=== PATIENT | male | born 1995 | race African-American/Black ===

== ENCOUNTER 2017-02-06 11:02 | Emergency (ER) | payer SELFPAY ==
[2017-02-06 11:43] LABS: #Basophils 0.1 thou/uL (0.0-0.2); #Eosinphils 0.1 thou/uL (0.0-0.7); #Lymphocytes 2.3 thou/uL (1.20-3.40); #Neutrophils 8.8 thou/uL (1.40-6.50); %Basophils 0.6 % (0.0-1.0); %Lymphocytes 18.4 % (21.0-51.0); %Monocytes 8.5 % (0.0-10.0); Hematocrit 46.1 % (42.0-52.0); Mean Platelet Volume 8.6 fL (7.4-10.4); Red Blood Cell (RBC) Count 5.08 mill/uL (4.70-6.10); White Blood Cell (WBC) Count 12.2 thou/uL (4.8-10.8)
[2017-02-06 12:07] LABS: ALT (SGPT) 27 U/L (8-55); AST (SGOT) 20 U/L (5-34); Alkaline Phosphatase 64 U/L (40-150); Anion Gap 11 mmol/L (10-20); BUN (Urea Nitrogen) 17 mg/dL (8.9-20.6); Bilirubin, Total 0.5 mg/dL (0.2-1.2); Calc. Creatinine Clearance 0 mL/min (70-130); Calcium 9.7 mg/dL (7.8-10.44); Carbon Dioxide 28 mmol/L (22-29); Chloride 108 mmol/L (98-107); Estimated GFR-MDRD Greater than 90; Globulin 3.2 g/dL (2.4-3.5); Lipase 12 U/L (8-78); Protein, Total 7.1 g/dL (6.0-8.3)
[2017-02-06] MEDS ORDERED: Ondansetron ODT 4 MG TAB ONE (13:12)
[2017-02-06] MEDS ORDERED: Dicyclomine HCl 20 mg/2 ml Ampule ONE (13:12)
[2017-02-06 13:19] LABS: Bilirubin Negative (Negative); Blood, Urine Negative (Negative); Glucose, Urine (Dipstick) Negative (Negative); Ketone, Urine Negative (Negative); Nitrite Negative (Negative); Protein, Urine (Dipstick) Negative (Neg-Trace)
== END 2017-02-06 14:51 | disposition home or self-care (01) ==
LOC: ERS 11:02
DX: R19.7 Diarrhea, unspecified (principal); J45.909 Unspecified asthma, uncomplicated; F17.210 Nicotine dependence, cigarettes, uncomplicated
CPT/HCPCS: 36415; 80053; 81003; 83690; 85025; 96372; Q0162

== ENCOUNTER 2017-08-05 22:11 | Emergency (ER) | payer SELFPAY ==
[2017-08-05] MEDS ORDERED: Lidocaine 1% PF 5 ML VIAL ONE (22:56)
[2017-08-05] MEDS ORDERED: cefTRIAXone\\ROCEPHIN 250 MG VIAL ONE (22:56)
[2017-08-05 22:59] LABS: Bilirubin Negative (Negative); Blood, Urine Negative (Negative); Clarity CLEAR (Clear); Glucose, Urine (Dipstick) Negative (Negative); Leukocyte Negative (Negative); Nitrite Negative (Negative); Protein, Urine (Dipstick) Negative (Neg-Trace); Specific Gravity, Urine 1.023 (1.002-1.036); Urobilinogen 0.2 mg/dL (0.2-1.0)
[2017-08-05] MEDS ORDERED: Azithromycin 250 MG TAB ONE (22:59)
[2017-08-05] MEDS ORDERED: Ondansetron ODT 4 MG TAB ONE (23:05)
--- NOTE | 2017-08-05 23:58 | RAD ---
PORTABLE AP CHEST X-RAY: 08/05/2017 HISTORY: Nausea and vomiting. The patient reports vomiting blood today. COMPARISON: 10/26/2016 FINDINGS: The cardiac silhouette and pulmonary vasculature are within normal limits for the portable technique of the study. The lungs remain clear. There has been no interval change when compared to the prior exam. IMPRESSION: No acute cardiopulmonary process. POS: [facility]
[2017-08-06 22:25] LABS: Chlamydia by PCR DETECTED (NotDetected); GC by PCR Not Detected (NotDetected)
== END 2017-08-05 23:43 | disposition home or self-care (01) ==
LOC: ERS 22:11
DX: Z71.6 Tobacco abuse counseling; F17.210 Nicotine dependence, cigarettes, uncomplicated; N34.2 Other urethritis; R11.2 Nausea with vomiting, unspecified
CPT/HCPCS: 71045; 81003; 87491; 87591; 87804; 96372; 99406; J0696; J2001; Q0162

== ENCOUNTER 2017-11-28 18:37 | Emergency (ER) | payer SELFPAY ==
--- NOTE | 2017-11-28 19:11 | RAD ---
RIGHT HAND THREE VIEWS: 11/28/17 HISTORY: Injury, right hand pain. FINDINGS/IMPRESSION: No acute fracture or dislocation is identified. POS: [facility]
== END 2017-11-28 20:35 | disposition home or self-care (01) ==
LOC: ERS 18:37
DX: S60.221A Contusion of right hand, initial encounter (principal); Z71.6 Tobacco abuse counseling; F17.210 Nicotine dependence, cigarettes, uncomplicated; W22.8XXA Striking against or struck by other objects, initial encounter
CPT/HCPCS: 99406

== ENCOUNTER 2018-03-18 23:14 | Emergency (ER) | payer SELFPAY ==
--- NOTE | 2018-03-18 23:43 | CT ---
CT HEAD WITHOUT CONTRAST: Technique: Multiple contiguous axial images were obtained through the head without IV enhancement. Indication: Headache. FINDINGS: Ventricles have normal size and position. No evidence of mass or hemorrhage. No edema or infarct. Sin uses and mastoids are aerated. IMPRESSION: No evidence of acute process. POS: [facility]
[2018-03-19] MEDS ORDERED: Ketorolac Tromethamine 60 MG/2 ML VIAL ONE (00:03)
== END 2018-03-19 00:45 | disposition home or self-care (01) ==
LOC: ERS 23:14
DX: G50.1 Atypical facial pain (principal); F17.210 Nicotine dependence, cigarettes, uncomplicated
CPT/HCPCS: 70450; 96372; J1885

== ENCOUNTER 2019-05-05 12:21 | Emergency (ER) | payer SELFPAY | END 2019-05-05 13:58 | disposition home or self-care (01) | LOC: ERS 12:21 | DX: J06.9 Acute upper respiratory infection, unspecified (principal); F17.210 Nicotine dependence, cigarettes, uncomplicated; J45.909 Unspecified asthma, uncomplicated | CPT/HCPCS: 87804; 99283 ==

== ENCOUNTER 2021-01-03 00:04 | Emergency (ER) | payer SELFPAY ==
[2021-01-03] MEDS ORDERED: methylPREDNISolone Sod Succ/PF 125 MG/2 ML VIAL ONE (02:14)
== END 2021-01-03 02:25 | disposition home or self-care (01) ==
LOC: ERS 00:04
DX: J06.9 Acute upper respiratory infection, unspecified (principal); J45.909 Unspecified asthma, uncomplicated; Z87.891 Personal history of nicotine dependence
CPT/HCPCS: 71045; 87081; 87430; 96372; J2930

== ENCOUNTER 2023-05-21 18:12 | Emergency (ER) | payer SELFPAY ==
[2023-05-21] MEDS ORDERED: Ketorolac Tromethamine 30 MG (1 mL) VIAL ONE (20:41)
== END 2023-05-21 20:55 | disposition home or self-care (01) ==
LOC: ERS 18:12
DX: M25.472 Effusion, left ankle (principal); F17.210 Nicotine dependence, cigarettes, uncomplicated
CPT/HCPCS: 96372; J1885